=== PATIENT | female | born 2005 | race Caucasian/White ===

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

== ENCOUNTER 2023-05-29 15:28 | Emergency (ER) | payer SELFPAY ==
[2023-05-29 15:41] VITALS: BP 101/62; PULSE 118; RESP 20; TEMP 37; O2SAT 100
--- NOTE | 2023-05-29 16:46 | ED.GENADULT ---
HPI - General Adult General Chief complaint: Urogenital-Female Stated complaint: Urinary Problems and Back Pain Source: patient Mode of arrival: ambulatory Limitations: no limitations History of Present Illness HPI narrative: Patient presents for evaluation of what she believes to be urinary tract infection. She reports low back pain and dysuria both of which started this morning. She cannot identify any precipitating event or injury. Pain in her back is sharp, rated 7/10 at max and 5/10 currently. No radicular component. No paresthesias. She has not taken any medication for her symptoms. Outside of dysuria she has no other urinary symptoms. She denies vaginal bleeding or discharge. She states no chance of as she is only sexually active with a female partner. Related Data Allergies Allergy/AdvReac Type Severity Reaction Status Date / Time No Known Allergies Allergy Verified 10/02/22 14:10 Review of Systems Review of Systems: CONSTITUTIONAL: Denies fever, chills, or sweats. EYES: Denies visual changes, redness, or discharge. ENT: Denies rhinorrhea, congestion, sore throat, or otalgia. CARDIOVASCULAR: Denies chest pain, palpitations, or edema. RESPIRATORY: Denies cough or dyspnea. GASTROINTESTINAL: Denies abdominal pain, nausea, vomiting, or diarrhea. GENITOURINARY: Reports dysuria without other urinary symptoms. Denies vaginal bleeding or discharge. SKIN: Denies rash or itching. MUSCULOSKELETAL: Reports low back pain. Denies joint pain, or myalgia. NEUROLOGIC: Denies headache, numbness, dizziness, or weakness. PSYCHIATRIC: Denies anxiety or depression. [facility] Past Medical History Medical History (Updated 05/29/23 @ 16:56 by SABRINA Olmos, MITA) No pertinent past medical history Surgical History Surgical History No pertinent past surgical history Family History Family History Mother Family history non-contributory Social History Social History Living arrangements: with family Additional living arrangements comments: and girlfriend Gender identity (if verbalized by the patient): Female Sexual Orientation (if Verbalized by the Patient): Lesbian, Reed, or Homosexual Spiritual care concerns: No Exam Narrative: GENERAL: Well-appearing, well-nourished, and in no acute distress. HEAD: Normocephalic, atraumatic. EYES: PERRLA and EOMI. ENT: Nares clear, no rhinorrhea or epistaxis. Mucous membranes moist. Oropharynx without tonsillar hypertrophy exudate or other lesions. Bilateral TMs pearly mendez nonbulging NECK: Supple. No adenopathy or masses. No carotid bruits or JVD CHEST: Clear to auscultation. No respiratory distress. No wheezes rales or rhonchi HEART: Regular rate and rhythm. No murmur heard. Normal peripheral pulses. ABDOMEN: Soft, nontender, nondistended, normal active bowel sounds. BACK: No tenderness in the midline or paraspinous muscles bilaterally of the lumbar spine. No CVA tenderness. EXTREMITIES: Normal range of motion. No edema. SKIN: Warm, dry, no rash. NEURO: No focal deficits. Alert and oriented x3. PSYCH: Normal mood and affect. Course Course Emergency Course: This is a 17-year-old female who presented for evaluation of low back pain and dysuria. No evidence of infection in her urine today. Other differentials would be kidney stones vs musculoskeletal pain vs ovarian cyst vs other. She has no vaginal bleeding or discharge and denies any abdominal or pelvic pain. Her pain is bilateral in presentation so likely not a stone. She appears quite well in terms of her PE. I recommended she try ibuprofen for her symptoms and follow up with PCP. In the event that her symptom worsen, she should go to the ER for further evaluation. Pt in agreement with plan of care. Level of Ca
[2023-05-29 16:51] VITALS: PULSE 100
== END 2023-05-29 16:51 | disposition home or self-care (01) ==
PROVIDERS: Emergency Provider Nurse Practitioner
DX: M54.50 Low back pain, unspecified (principal)
CPT/HCPCS: 81003; 99212; G0463